=== PATIENT | female | born 1985 | race Caucasian/White ===

== ENCOUNTER 2018-02-26 10:32 | Emergency (ER) | payer OTHER ==
[2018-02-26] MEDS: HYDROmorphONE 2 MG/ML SYG IM (11:13)
== END 2018-02-26 12:10 | disposition home or self-care (01) ==
LOC: FTE 10:32
DX: M54.5 Low back pain (principal); F17.210 Nicotine dependence, cigarettes, uncomplicated
CPT/HCPCS: 81025; 96372; 99284-25

== ENCOUNTER 2018-06-16 22:35 | Emergency (ER) | payer OTHER ==
[2018-06-17] MEDS: morphine 4 MG/ML VIAL IM (00:15)
== END 2018-06-17 00:57 | disposition home or self-care (01) ==
LOC: FTE 22:35
DX: M54.5 Low back pain (principal); G89.29 Other chronic pain; F17.210 Nicotine dependence, cigarettes, uncomplicated
CPT/HCPCS: 96372; 99284-25